=== PATIENT | female | born 2000 | race Two or more races ===

== ENCOUNTER 2021-05-04 14:43 | Outpatient (REF) | payer OTHER, SELFPAY ==
[2021-05-04 15:07] LABS: Basophils Percent Auto 0.8 % (0-2); Eosinophils Absolute Auto 0.2 X10*3/uL (0.0-0.4); Eosinophils Percent Auto 3.7 % (0-4); Hemoglobin 12.3 g/dl (12.0-16.0); Lymphocytes Absolute Auto 2.5 X10*3/uL (1.2-4.9); Lymphocytes Percent Auto 51.2 % (20-40); MANUAL DIFF FLAG NO; Mean Corpuscular HGB Conc 33.2 g/dl (31.0-35.0); Mean Corpuscular Hemoglobin 28.6 pg (27.0-33.0); Mean Platelet Volume 10.3 fL (9.4-12.3); Monocytes Absolute Auto 0.4 X10*3/uL (0.1-1.2); Monocytes Percent Auto 7.3 % (2-11); Neutrophils Absolute Auto 1.8 X10*3/uL (2.0-8.3); Platelet Count 253 X10*3/uL (160-400); Red Cell Distribution Width 12.1 % (11.0-16.0); White Blood Count 4.9 X10*3/uL (4.8-10.8)
[2021-05-04 15:58] LABS: Alanine Aminotransferase 19 U/L (0-31); Albumin Level 4.5 g/dL (3.5-5.0); Alkaline Phosphatase 65 U/L (39-117); Anion Gap 11 (12-20); Aspartate Amino Transferase 17 U/L (5-31); Bilirubin Total 0.5 mg/dL (0.0-1.0); Blood Urea Nitrogen 13 mg/dL (9-16); Calcium 9.6 mg/dL (8.4-10.2); Carbon Dioxide 24 mmol/L (22-29); Chloride 109 mmol/L (96-108); Estimated Glomerular Filt Rate > 60; Glucose Fasting 86 mg/dL (60-99); Potassium 3.9 mmol/L (3.3-5.1); Sodium 140 mmol/L (135-145); Total Protein 7.3 g/dL (6.5-8.0)
[2021-05-08 13:21] LABS: Vitamin D 25-OH, D2 <4 ng/mL; Vitamin D 25-OH, D3 18 ng/mL; Vitamin D 25-OH, Total 18 ng/mL (30-100)
== END 2021-05-04 14:44 | disposition home or self-care (01) ==
LOC: HO.LAB 14:43
PROVIDERS: PCP Internal Medicine; Visit Provider Internal Medicine
DX: D64.9 Anemia, unspecified (principal); R53.82 Chronic fatigue, unspecified; R25.2 Cramp and spasm; E55.9 Vitamin D deficiency, unspecified
CPT/HCPCS: 36415; 80053; 82306; 83735; 84443; 85025